=== PATIENT | female | born 1995 | race Hispanic/Latino ===

== ENCOUNTER 2017-09-30 22:51 | Inpatient (IN) | payer OTHER ==
[2017-10-01 01:43] LABS: BASO % 0.5 % (0.0-2.0); EOS # 0.2 K/uL (0.0-0.7); EOS % 2.4 % (0.0-4.0); LYMPH # 1.6 K/uL (1.0-4.3); MEAN CELL VOLUME 86.5 fl (81.0-99.0); MEAN CORPUSCULAR HEMOGLOBIN 28.4 pg (27.0-31.0); MEAN CORPUSCULAR HGB CONC 32.9 g/dL (33.0-37.0); MEAN PLATELET VOLUME 9.7 fl (7.2-11.7); MONO # 0.5 K/uL (0.0-0.8); MONO % 5.5 % (0.0-10.0); NEUT # 6.5 K/uL (1.8-7.0); NEUT % 73.6 % (50.0-75.0); RBC 4.57 Mil/uL (3.80-5.20); RED CELL DISTRIBUTION WIDTH 14.5 % (11.5-14.5); WHITE BLOOD COUNT 8.8 K/uL (4.8-10.8)
[2017-10-01] MEDS: Lactated Ringer's 1,000 ML IV SCH ×4 (07:35→21:43)
[2017-10-01] MEDS ORDERED: Oxytocin 30 units/LR 500ML 30 UNITS/500 ML BAG IV ONE (08:25)
--- NOTE | 2017-10-01 09:06 | OBADHP ---
Datetime: 10/01/2017 09:01 Admit Comment, IP Provider: Admit to L/D and initiate labor protocol, possible augumentation Extremities - PN: Normal Abdomen - PN: Abnormal Back - PN: Normal Breast - PN: Normal Lungs - PN: Normal Heart - PN: Normal Thyroid - PN: Normal Neurologic - PN: Normal HEENT - PN: Normal General - PN: Normal Presentation-Admit: Cephalic FHR - Baseline A Provider: 150 Amniotic Fluid Color, Provider: Clear Membranes, Provider: Ruptured Comments, ACOG Physical Exam: Abd gravid NT fundus at 38 cm above sp, ext no calf tenderness Gestation - Est Wks by US: 40+ Pool Provider: Positive IP Hx Assessment: The History has been Reviewed and is Current IP Chief Complaint: Suspected ruptured membranes NICHD Variability Prov Fetus A: Moderate 6-25bpm NICHD Decel Fetus A IP Provider: None Dilatation, Provider: ft Effacement, Provider: 50 Genitourinary Exam: Normal DTRs - PN: Normal EGA AdmitDate IP: 40.3 IP Adm Impression: Term, intrauterine IP Admit Plan: Admit to unit; Initiate labor protocol
--- NOTE | 2017-10-01 09:12 | OBPN ---
Datetime: 10/01/2017 09:01 IP Progress Impression Other: variable decels present IP Progress Impression: Normal progression of labor IP Procedures: Scalp Electrode IP Progress Plan: Continue present management Pool Provider: Positive Membranes, Provider: Ruptured Amniotic Fluid Color, Provider: Clear Contraction Comments Provider: irreg FHR - Baseline A Provider: 150 Gestation - Est Wks by US: 40+ Presentation-Admit: Cephalic IP Progress Note Comment: scalp electrode placed and will monitor tracing if ok possible Pitocin aug umentation NICHD Variability Prov Fetus A: Moderate 6-25bpm Dilatation, Provider: 4 Effacement, Provider: 80 Station, Provider: -2 NICHD Decel Fetus A IP Provider: None
[2017-10-01] MEDS ORDERED: cefOXitin Sodium 1 GM in Sodium Chloride 0.9% 100 ML IVPB ONE (09:45)
[2017-10-01] MEDS ORDERED: cefOXitin IV 1 gm in Dextrose 1 GM/50 ML BAG IVPB ONE (09:45)
[2017-10-01] MEDS ORDERED: Morphine 1 mg/ml preservative-free Inj(Duramorph) ONE (09:47)
[2017-10-01] MEDS ORDERED: Ketamine 50 mg/ml Inj (10 ml) ONE (10:16)
--- NOTE | 2017-10-01 11:17 | OBDS ---
DELIVERY PERSONNEL Delivery Doctor: Andie Hopper MD Anesthesiologist: Dr. Gordillo MATERNAL INFORMATION Estimated Blood Loss (ml): 850 Maternal Complications: None Provider Comments: see dictated surgeons note LABOR SUMMARY EDC: 09/28/2017 00:00 LABOR INFORMATION Reason for Induction: Not Applicable Group B Beta Strep: Negative Steroids Given: None Reason Steroids Not Administered: Not Applicable MEMBRANES Membranes Rupture Method: Spontaneous Rupture of Membranes: 09/30/2017 22:30 Length of Rupture (hrs): 11.88 Amniotic Fluid Color: Clear Amniotic Fluid Amount: Small Amniotic Fluid Odor: Normal STAGES OF LABOR Stage 3 hrs: 0 Stage 3 min: 1 VAGINAL DELIVERY Episiotomy: None Laceration Extension: N/A Laceration Type: None Laceration Repair: Not Applicable Sponge Count Correct: Yes Sharps Count Correct: Yes Count Comment: count correct x3 CSECTION DELIVERY Primary Indication: Nonreassuring Status CSection Urgency: Non Elective CSection Incidence: Primary Labor: Labor Elective: Nonelective CSection Incision: Lower Uterine Transverse Uterine Closure: Double-layer closure BABY A INFORMATION Infant Delivery Date/Time: 10/01/2017 10:23 SHOULDER DYSTOCIA BABY A Delivery Date/Time: 10/01/2017 10:23 PRESENTATION/POSITION BABY A Presentation: Cephalic Cephalic Presentation: Vertex Breech Presentation: N/A PLACENTA INFORMATION BABY A Placenta Delivery Time : 10/01/2017 10:24 Placenta Method of Delivery: Expressed Placenta Status: Delivered SCORES BABY A Heart Rate 1 min: >100 bpm Resp Effort 1 min: Good Cry Reflex Irritability 1 min: Cough or Sneeze or Pulls Away Muscle Tone 1 min: Active Motion Color 1 min: Body Netos, Extremities Blue SCORE 1 MIN: 9 Heart Rate 5 min: >100 bpm Resp Effort 5 min: Good Cry Reflex Irritability 5 min: Cough or Sneeze or Pulls Away Muscle Tone 5 min: Active Motion Color 5 min: Body Netos, Extremities Blue Resuscitation Effort 5 min: N/A SCORE 5 MIN: 9 INFORMATION BABY A Gestational Age at Delivery: 40.3 Gestational Status: Term Infant Outcome : Liveborn Infant Condition : Stable Sex: Male IDENTIFICATION/MEDS BABY A ID Band Number: [id number] ID Band Location: Left Leg; Left Arm WEIGHT/LENGTH BABY A Birthweight (gms): 3090 Weight (lb): 6 Weight (oz): 13 CORD INFORMATION BABY A No. Cord Vessels: 3 Nuchal Cord : Around Neck x1, Tight Cord Blood Taken: Yes Suction: Mouth; Nose
[2017-10-01] MEDS ORDERED: cefOXitin IV 1 gm in Dextrose 1 GM/50 ML BAG IVPB SCH ×2 (11:30→18:00)
[2017-10-01] MEDS ORDERED: Oxytocin 30 units/LR 500ML 30 UNITS/500 ML BAG IV SCH (11:30)
--- NOTE | 2017-10-01 13:52 | OBADHP ---
Datetime: 10/01/2017 09:01 EGA AdmitDate IP: 40.3 Datetime: 09/30/2017 23:46 Admit Comment, IP Provider: 22-year-old at 40 weeks and 3 days gestational age complains of gu sh of fluid at home. Patient denies any vaginal bleeding or contractions. Patient reports good movement. GBS negative Past medical history none Past surgical history none Medications vitamins No known drug allergies Obstetrical history Social history no tobacco, no drugs, no alcohol Assessment: at 40 weeks gestational age with spontaneous rupture of membranes. Both maternal well-being and well-being reassuring at this time. Plan: Admit to labor and delivery for management Discussed with patient all patient questions are answered. Pelvic Type - PN: Adequate Extremities - PN: Normal Abdomen - PN: Normal Back - PN: Normal Breast - PN: Normal Lungs - PN: Normal Heart - PN: Normal Thyroid - PN: Normal Neurologic - PN: Normal HEENT - PN: Normal General - PN: Normal Amniotic Fluid Color, Provider: Clear Membranes, Provider: Ruptured Contraction Comments Provider: occasional Comments, ACOG Physical Exam: Sterile speculum exam: Positive pooling at posterior vagina, clear fluid Pool Provider: Positive Vital Signs Provider: Reviewed; Within Normal Limits IP Chief Complaint: Suspected ruptured membranes Dilatation, Provider: 0 Effacement, Provider: 0 Station, Provider: -3 Genitourinary Exam: Normal DTRs - PN: Normal IP Adm Impression: Term, intrauterine ; No Active Labor; Ruptured Membranes IP Admit Plan: Admit to unit
[2017-10-01] MEDS ORDERED: Promethazine 25 MG in Sodium Chloride 0.9% 50 ML IVPB ONE (15:28)
[2017-10-01] MEDS: cefOXitin IV 1 gm in Dextrose 1 GM/50 ML BAG IVPB SCH (18:46)
[2017-10-02] MEDS: cefOXitin IV 1 gm in Dextrose 1 GM/50 ML BAG IVPB SCH ×2 (01:55→10:00)
[2017-10-02 07:42] LABS: HEMOGLOBIN 9.6 g/dL (12.0-16.0); MEAN CELL VOLUME 87.2 fl (81.0-99.0); MEAN CORPUSCULAR HEMOGLOBIN 28.5 pg (27.0-31.0); MEAN CORPUSCULAR HGB CONC 32.7 g/dL (33.0-37.0); RBC 3.36 Mil/uL (3.80-5.20); RED CELL DISTRIBUTION WIDTH 14.9 % (11.5-14.5); WHITE BLOOD COUNT 11.3 K/uL (4.8-10.8)
[2017-10-02] MEDS ORDERED: Oxycodone/Acetaminophen 5/325 mg Tab PO PRN ×4 (08:18→17:58)
[2017-10-02] MEDS ORDERED: Albuterol HFA 90 mcg/actuation (8 g) INH PRN ×2 (08:21→17:58)
[2017-10-02] MEDS ORDERED: Promethazine 25 MG in Sodium Chloride 0.9% 50 ML IVPB ONE (17:58)
--- NOTE | 2017-10-02 20:44 | OP ---
PROCEDURE DATE: 10/01/2017 PREOPERATIVE DIAGNOSES: 1. at 40 plus weeks gestation. 2. Nonreassuring tracing prior from delivery. POSTOPERATIVE DIAGNOSES: 1. at 40 plus weeks gestation. 2. Nonreassuring tracing prior from delivery. 3. Nuchal cord x1. PROCEDURE PERFORMED: Primary low transverse segment section. SURGEON: Bobby Hopper MD SUPERVISORY GEOGRAPHER: Katlin Monsivais MD, who was there for the entire duration of the case. Pad Hand needed and provided positioning of the patient, opening of the abdomen, delivery of the baby, and closure of the abdomen. TYPE OF ANESTHESIA: Spinal and postdelivery deep sedation. ANESTHESIA ADMINISTERED BY: Jeff Verde MD ESTIMATED BLOOD LOSS: 850 mL. DRAINS USED: None. REPLACEMENTS USED: None. FINDINGS: 1. Delivered a living baby boy, baby appears term, and baby cried spontaneously. Pediatrist in attendance. score of 9 and 9. 2. Nuchal cord x1, tight. 3. Amniotic fluid clear. 4. Placenta complete and intact with multiple calcification and appears slightly thick, sent to pathology. 5. Both tubes and ovaries appears grossly within normal limits to inspection bilaterally. DESCRIPTION OF PROCEDURE: The patient was taken to the operating room and placed on the operating room table in a supine position. Following induction of spinal anesthesia, a John catheter was placed into the bladder and clear fluid was then evacuated from the bladder. Venodyne boots were applied to both legs and the patient was then replaced in the supine position. Following this, we then proceeded to drape and prepped the abdomen in the usual sterile manner. Anesthesia tested and after this, a Pfannenstiel incision was then made using sharp dissection two fingerbreadths above the symphysis pubis. The incision was then extended down to subcutaneous tissue also using sharp dissection. At this time, we then proceeded to obtain hemostasis by means of electrocoagulation. Following this, we then proceeded to identify the fascia, the fascia was then entered at the midline. Incision of the fascia was then extended laterally on each direction using sharp dissection. Rectus muscle was then identified, was then slid in the midline, exposing the peritoneum, the peritoneal layer was then picked up using 2 Alessandra clamps, retracted superiorly, and then entered using sharp dissection. Incision on the peritoneum was then extended superiorly and inferiorly under direct visualization. The bladder was then identified and was then retracted inferiorly using a [place] retractor. The low transverse segment of the uterus was then identified and visceroperitoneum covering this area and was then entered using sharp dissection. Using blunt dissection, a bladder flap was then created and retracted inferiorly using the same [place] retractor. Following this, we then proceeded to make an incision of the low transverse segment of the uterus. Upon entering the uterine cavity, clear fluid noted to be present. The incision was then extended laterally on each direction using bandage scissors. Following this, we then proceeded to using amnioscopy procedure to deliver a living baby boy, there was a cord around the neck, which appears to be mildly tight, undone prior to delivery. At this time, we then proceeded to accelerate the baby using bulb suction. The baby was then handed to the pediatric personnel who was standing by. Samples of cord blood were then collected and the placenta was then delivered complete and intact. Placenta appears to be multiple calcifications and thick at this time and it was sent to pathology for proper pathological evaluation. At this time, we then proceeded to exteriorize the uterus to provide better visualization. The uterine cavity was then suddenly cleaned using moist lap pads and the uterus massaged and contracted well. Following this, we then proceeded to secure the uterine incision using multiple T-clamps and the uterine incision was then approximated using 0 Vicryl suture in a continuous manner. A second layer was also applied using 0-Vicryl suture in a continuous manner. Hemostasis was checked and found to be well secured. The bladder flap was then approximated using 3-0 rapid in a continuous manner. Both tubes and ovaries appear grossly within normal limits to inspection bilaterally. Free amniotic fluid and blood evacuated from the pelvic cavity and pelvic cavity was then irrigated using saline solution and all operative areas checked, hemostatically secured, and the uterus allowed to retract back into its original position. Again, all operative areas checked, hemostatically secured. The peritoneum was then closed using 0 Vicryl suture for the peritoneum in a continuous manner. Rectus muscle was also approximated in the midline using several interrupted 0 Vicryl sutures. At this time, the fascia was then identified, was then approximated using a 1 Vicryl suture in a continuous manner. Fascia was then checked and found to be free of defect. Subcutaneous tissue was then irrigated using saline solution and approximated using several interrupted 2-0 plain sutures. The skin was then approximated using a 3-0 Prolene in a subcuticular fashion. Steri-Strips were then applied. The patient tolerated the procedure well. There were no complications. She was transferred to the recovery room in satisfactory condition. Clear fluid noted to be present in the John bag at this time. Sponge, instrument, and needle count were correct x3. Bobby Hopper MD MTDMariana
--- NOTE | 2017-10-03 11:37 | OBPPN ---
Datetime: 10/03/2017 11:33 PP Pain Prov: Within normal limits PP Pain Prov comment: jNo SOB, chest or leg pains PP Nausea Prov: Denies PP Flatus Prov: Yes PP BM Prov: No PP Nausea Prov comment: voiding well PP Flatus Prov comment: No dizziness PP Breasts Prov: Normal PP Lungs Prov: Normal PP Abdomen/Uterus Prov: Abnormal PP Lochia Prov: Normal PP Vulva/Perineum Prov: Normal PP CVA Tenderness Prov: Normal PP Extremities Prov: Normal PP C/S Incision Prov: Normal PP Progress Prov: Normal PP Comments Phys Exam Prov: breast not engorged NT, Abd soft ND, fundus firm at umb, incision clean and dry no suppt or discharge no active bleeding Ext no calf tenderness PP Impression Prov: Normal progression PP Plan Prov: Continue present management PP Progress Note Prov: Start on po iron and continue PP care an d OOB and ambulation IP PP Procedures: None Vital Signs Provider PP: Reviewed Datetime: 10/02/2017 12:47 PP Heart Prov: Normal
--- NOTE | 2017-10-04 07:20 | OBDCSUM ---
Datetime: 10/04/2017 07:19 Discharged to, Provider: Home Follow up at, Provider: Dr Hopper Disch Instr Activity: Bedrest; May be up to bathroom; May be up for meals; May Shower Disch Instr Diet: Regular Discharge Instructions, Provider: Routine instructions given Discharge Diagnosis, Provider: Term Delivered Discharge Time: 10/04/2017 07:19 Follow up in weeks, Provider: 1 wk Disch Referrals: None Contraception discussed, Prov: Yes Disch Activity Restrictions: No exercising; No lifting; No driving; Minimize walking; Minimize stair -climbing; No sexual activity; Nothing in vagina - [place], tampons, douche Discharge Comment, Provider: Continue PNC vjit and iron Rx for Percocet given Contraception after Delivery: Undecided
--- NOTE | 2017-10-04 07:20 | OBPPN ---
Datetime: 10/04/2017 07:16 PP Pain Prov: Within normal limits PP Pain Prov comment: No SOB, chest or leg pains PP Nausea Prov: Denies PP Flatus Prov: Yes PP BM Prov: Yes PP Nausea Prov comment: voiding well PP Breasts Prov: Normal PP Lungs Prov: Normal PP Abdomen/Uterus Prov: Abnormal PP Lochia Prov: Normal PP Vulva/Perineum Prov: Normal PP CVA Tenderness Prov: Normal PP Extremities Prov: Normal PP C/S Incision Prov: Normal PP Progress Prov: Normal PP Comments Phys Exam Prov: breast not engorged; Abd soft ND, depressible fundus fjirm below the umb .. Incision clean and dry no sign of infection or active bleeding or suppt Ext no calf tenderness PP Impression Prov: Normal progression PP Plan Prov: Discharge PP Progress Note Prov: D/C home with instructions IP PP Procedures: None Vital Signs Provider PP: Reviewed
[2017-10-04] MEDS ORDERED: Pneumococcal 23-Valent Vaccine IM ONE (10:00)
[2017-10-05 01:17] VITALS: BP 131/73; PULSE 102; RESP 20; TEMP 97.4; O2SAT 98
== END 2017-10-04 13:57 | disposition home or self-care (01) | DRG 766 ==
LOC: H.EROB2 22:51 → H.L&D 10-01 00:08 → H.OB/GYN 10-01 13:31
PROVIDERS: ADMIT Specialist; ATTEND Specialist
PROC: 10D00Z1 Extraction of Products of Conception, Low, Open Approach (ICD-10-PCS; principal; 2017-10-01)
PROC: 4A1H74Z Monitoring of Products of Conception, Cardiac Electrical Activity, Via Natural or Artificial Opening (ICD-10-PCS; 2017-10-01)
DX: O76 Abnormality in fetal heart rate and rhythm complicating labor and delivery (principal); Z37.0 Single live birth; O69.1XX0 Labor and delivery complicated by cord around neck, with compression, not applicable or unspecified; Z3A.40 40 weeks gestation of pregnancy